=== PATIENT | female | born 1990 | race Caucasian/White ===

== ENCOUNTER 2021-05-21 23:43 | Inpatient (IN) | payer OTHER ==
[2021-05-22] VITALS: BMI 35.9
[2021-05-22] MEDS ORDERED: hydrALAZINE 20 MG/ML VIAL SLOW IVP PRN ×3 (00:31→21:48)
[2021-05-22] MEDS ORDERED: Butorphanol Tartrate 1 MG/ML VIAL SLOW IVP PRN (00:51)
[2021-05-22] MEDS ORDERED: Lactated Ringer's 1,000 ML IV SCH ×2 (01:00→04:30)
[2021-05-22 02:55] LABS: #Monocytes 0.5 10x3/uL (0.0-1.1); #Neutrophils 8.2 10x3/uL (1.5-8.4); %Basophils 0.2 % (0.0-2.0); %Eosinophils 0.3 % (0.0-6.0); %Lymphocytes 15.1 % (18.0-47.0); %Monocytes 5.2 % (0.0-10.0); %Neutrophils 78.6 % (40.0-75.0); Hemoglobin 11.9 g/dL (12.0-15.5); Mean Corpuscular HGB CONC 34.1 g/dL (32.0-36.0); Mean Corpuscular Hemoglobin 31.1 pg (27.0-33.0); Mean Corpuscular Volume 91.1 fl (81.6-98.3); Mean Platelet Volume 10.3 fl (7.4-10.4); Platelet Count 258 10x3/uL (150-450); RBC Distribution Width 12.8 % (11.5-14.5); Red Blood Cell (RBC) Count 3.83 10x6/uL (3.90-5.03); White Blood Cell (WBC) Count 10.4 10x3/uL (3.5-10.5)
[2021-05-22 03:06] LABS: ALT (SGPT) 12 U/L (8-55); AST (SGOT) 20 U/L (5-34); Albumin 3.8 g/dL (3.5-5.0); Alkaline Phosphatase 161 U/L (40-110); Anion Gap 17 mmol/L (10-20); BUN (Urea Nitrogen) 10 mg/dL (7.0-18.7); Bilirubin, Total 0.4 mg/dL (0.2-1.2); Calc. Creatinine Clearance 168 mL/min (70-130); Calcium 8.9 mg/dL (7.8-10.44); Carbon Dioxide 18 mmol/L (22-29); Chloride 105 mmol/L (98-107); Globulin 2.9 g/dL (2.4-3.5); Glucose 105 mg/dL (70-105); Potassium 3.7 mmol/L (3.5-5.1); Protein, Total 6.7 g/dL (6.0-8.3); Sodium 136 mmol/L (136-145)
[2021-05-22 03:26] LABS: Creatinine, Urine 160.01 mg/dL (47-110)
[2021-05-22] MEDS ORDERED: Ondansetron PF 4 MG/2 ML Vial IVP PRN ×3 (04:27→21:48)
[2021-05-22] MEDS ORDERED: Ibuprofen 800 MG TAB PO PRN (04:27)
[2021-05-22] MEDS ORDERED: Promethazine HCl 25 MG/ML VIAL IM PRN ×3 (04:27→21:48)
[2021-05-22] MEDS ORDERED: Acetaminophen 500 MG TAB PO PRN (04:27)
[2021-05-22] MEDS ORDERED: Misoprostol 200 MCG TAB PR PRN (04:27)
[2021-05-22] MEDS ORDERED: Lidocaine 1% (PF) 30 ML VIAL SC PRN (04:27)
[2021-05-22] MEDS ORDERED: Fentanyl 2 mcg/Bup 0.1% Cadd 100 ML ONE ×2 (04:29→11:50)
[2021-05-22] MEDS ORDERED: NS w/ Oxytocin 30 units 500 ML IV SCH ×3 (04:30→21:48)
[2021-05-22] MEDS ORDERED: ePHEDrine Sulfate 50 MG/10 ML VIAL SLOW IVP PRN (05:08)
[2021-05-22] MEDS ORDERED: Lactated Ringer's 500 ML IV PRN (05:08)
[2021-05-22] MEDS ORDERED: Hydrocerin (Eucerin) Cream 120 gm Jar TOP PRN (05:08)
[2021-05-22] MEDS ORDERED: Acetaminophen 325 MG TAB PO PRN (05:08)
[2021-05-22] MEDS ORDERED: diphenhydrAMINE 50 MG/ML VIAL IVP PRN (05:08)
[2021-05-22] MEDS ORDERED: Naloxone HCl 0.4 mg/ml Vial IVP PRN ×2 (05:08)
[2021-05-22] MEDS ORDERED: Communication Order-Pharmacy FS SCH (05:15)
[2021-05-22] MEDS ORDERED: Fentanyl 2 mcg/Bupivacaine 0.1% Cassette 100 ML EPIDURAL SCH (05:15)
[2021-05-22 05:23] LABS: Hep B Surf Ag Non-Reactive S/CO (NonReactive)
[2021-05-22 05:24] LABS: Syphilis Antibody Nonreactive (Nonreactive); Syphilis Antibody Index 0.03 S/CO (<1.00 Non-Reactive)
[2021-05-22 06:24] LABS: SARS-CoV-2 NAA Rapid Test Not Detected (NotDetected)
[2021-05-22] MEDS ORDERED: Fentanyl 100 MCG/2 ML VIAL ONE (15:55)
[2021-05-22] MEDS ORDERED: Methylergonovine 0.2 MG/ML VIAL ONE (18:08)
[2021-05-22] MEDS ORDERED: Misoprostol 200 MCG TAB ONE (18:08)
[2021-05-22] MEDS ORDERED: NS w/ Oxytocin 30 units 500 ML ONE (18:53)
[2021-05-22] MEDS ORDERED: diphenhydrAMINE 25 MG CAP PO PRN (21:48)
[2021-05-22] MEDS ORDERED: Lanolin Ointment 7 GM TUBE TOP PRN (21:48)
[2021-05-22] MEDS ORDERED: Measles/Mumps/Rubella 10 MCG/0.5 ML VIAL SC ONE (21:48)
[2021-05-22] MEDS ORDERED: Bisacodyl 10 MG SUPP PR PRN (21:48)
[2021-05-22] MEDS ORDERED: Milk Of Magnesia 30 ML UDCUP PO PRN (21:48)
[2021-05-22] MEDS ORDERED: Preparation H Ointment 28 GM TUBE PR PRN (21:48)
[2021-05-22] MEDS ORDERED: Varicella virus, LIVE 0.5 ML VIAL SC ONE (21:48)
[2021-05-22] MEDS ORDERED: Boostrix 0.5 ML (Tdap) VIAL IM ONE (21:48)
[2021-05-22] MEDS ORDERED: Zolpidem Tartrate 5 MG TAB PO PRN (21:48)
[2021-05-22] MEDS ORDERED: Benzocaine-Menthol 82.5 ML CAN TOP PRN (21:48)
[2021-05-22] MEDS ORDERED: Docusate 100 MG CAP PO SCH (22:00)
[2021-05-22] MEDS: Docusate 100 MG CAP PO SCH (23:08)
[2021-05-22] MEDS: HYDROcodone/Acetaminophen 5/325 mg Tablet PO PRN (23:08)
[2021-05-23 04:53] LABS: Hemoglobin 9.6 g/dL (12.0-15.5); Mean Corpuscular HGB CONC 33.8 g/dL (32.0-36.0); Mean Corpuscular Hemoglobin 31.3 pg (27.0-33.0); Mean Corpuscular Volume 92.5 fl (81.6-98.3); Mean Platelet Volume 9.4 fl (7.4-10.4); Platelet Count 213 10x3/uL (150-450); Red Blood Cell (RBC) Count 3.07 10x6/uL (3.90-5.03); White Blood Cell (WBC) Count 15.9 10x3/uL (3.5-10.5)
[2021-05-23] MEDS: Ibuprofen 800 MG TAB PO SCH ×5 (05:06→21:39)
[2021-05-23] MEDS: Prenatal Vitamin 1 TAB PO SCH (11:26)
[2021-05-23] MEDS: Ferrous Sulfate 325 MG TAB PO SCH ×2 (11:26→17:00)
[2021-05-23] MEDS: HYDROcodone/Acetaminophen 5/325 mg Tablet PO PRN ×3 (11:41→20:36)
[2021-05-23] MEDS: Docusate 100 MG CAP PO SCH (20:36)
[2021-05-24] MEDS: Ibuprofen 800 MG TAB PO SCH ×2 (06:13→13:22)
[2021-05-24] MEDS ORDERED: Bupivacaine/Epinephrine 0.25% 30 ML VIAL ONE (08:00)
[2021-05-24] MEDS ORDERED: Bupivacaine PF 0.5% 30 ML VIAL ONE (08:00)
[2021-05-24] MEDS: Ferrous Sulfate 325 MG TAB PO SCH (08:43)
[2021-05-24] MEDS: Prenatal Vitamin 1 TAB PO SCH (08:43)
[2021-05-24] MEDS: HYDROcodone/Acetaminophen 5/325 mg Tablet PO PRN (08:44)
[2021-05-24] MEDS: Docusate 100 MG CAP PO SCH (08:44)
[2021-05-24 11:42] VITALS: BP 139/80; TEMP 98.8
== END 2021-05-24 16:50 | disposition home or self-care (01) | DRG 807 ==
LOC: CSHLD/OP 23:43 → CSHLD 05-22 08:58 → CSHPP 05-22 22:25
PROVIDERS: ADMIT Obstetrics & Gynecology; ATTEND Obstetrics & Gynecology
PROC: 10E0XZZ Delivery of Products of Conception, External Approach (ICD-10-PCS; principal; 2021-05-22)
PROC: 0KQM0ZZ Repair Perineum Muscle, Open Approach (ICD-10-PCS; 2021-05-22)
PROC: 10907ZC Drainage of Amniotic Fluid, Therapeutic from Products of Conception, Via Natural or Artificial Opening (ICD-10-PCS; 2021-05-22)
DX: O34.211 Maternal care for low transverse scar from previous cesarean delivery (principal); Z37.0 Single live birth; Z3A.38 38 weeks gestation of pregnancy; Z20.822 Contact with and (suspected) exposure to COVID-19; Z91.040 Latex allergy status; O70.1 Second degree perineal laceration during delivery
CPT/HCPCS: 36415; 51702; 80053; 82570; 84156; 85025; 85027; 86780; 86850; 86900; 86901; 87340; 99285; J0595; J2590; J7120; S0020; U0002